=== PATIENT | female | born 1985 | race Asian ===

== ENCOUNTER 2020-06-13 16:22 | Emergency (ER) | payer SELFPAY ==
[~2020-06-13] VITALS: Ht 152.4 cm; Wt 56.7 kg
[2020-06-13 16:36] VITALS: BP 138/95
--- NOTE | 2020-06-13 16:36 | NUR ---
ED Nurse Note: Pt walked in to ED c/o pain and swelling to left jaw since 06/06/20. Pt went to urgent care earlier and was told to go to the ER for possible infection. Pt stated it started from a small lump then it progressively has gotten bigger. Denies fever/ chills.
--- NOTE | 2020-06-13 16:55 | NUR ---
ED Nurse Note: IV line established. Blood sent to lab.
[2020-06-13] MEDS ORDERED: Ketorolac 30mg Inj IM ONE (17:00)
[2020-06-13] MEDS ORDERED: Omnipaque-300 100ml vial INJ PRN (17:00)
[2020-06-13] MEDS ORDERED: Ketorolac 30mg Inj IV ONE (17:00)
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
[2020-06-13] MEDS ORDERED: Omnipaque-300 100ml vial INJ ONE (17:45)
[2020-06-13 18:19] LABS: HEMATOCRIT 36.2 % (37.0-47.0); HEMOGLOBIN 13.4 G/DL (12.0-16.0); MEAN CORPUSCULAR VOLUME 85 FL (80-99); PLATELET COUNT 380 K/UL (150-450); RED BLOOD COUNT 4.25 M/UL (4.20-5.40)
[2020-06-13 18:24] LABS: ANION GAP 14 mmol/L (5-15); BLOOD UREA NITROGEN 21 mg/dL (7-18); CALCIUM 9.3 MG/DL (8.5-10.1); CARBON DIOXIDE 21 MMOL/L (21-32); CHLORIDE 99 MMOL/L (98-107); CREATININE 0.9 MG/DL (0.55-1.30); POTASSIUM 3.6 MMOL/L (3.5-5.1); SODIUM 133 MMOL/L (136-145)
[2020-06-13 18:29] LABS: ALANINE AMINOTRANSFERASE 13 U/L (12-78); ALBUMIN 3.4 G/DL (3.4-5.0); ALBUMIN/GLOBULIN RATIO 0.6 (1.0-2.7); ALKALINE PHOSPHATASE 73 U/L (46-116); ASPARTATE AMINO TRANSFERASE 13 U/L (15-37); BILIRUBIN,TOTAL 0.4 MG/DL (0.2-1.0)
[2020-06-13] MEDS ORDERED: Piperacillin/Tazobactam 3.375 GM in NS 110 ML IVPB ONE (18:30)
--- NOTE | 2020-06-13 18:41 | NUR ---
ED Nurse Note: Pt was taken to CT, accompanied by a tech.
--- NOTE | 2020-06-13 18:56 | NUR ---
ED Nurse Note: Pt returned from CT.
--- NOTE | 2020-06-13 19:04 | NUR ---
HAND-OFF: Report given to Elaine PATEL.
--- NOTE | 2020-06-13 19:08 | Diagnostic Imaging Report ---
EXAM: CT Neck With Intravenous Contrast CLINICAL HISTORY: MASS TECHNIQUE: Axial computed tomography images of the neck with intravenous contrast. CTDI is 126.9 mGy and DLP is 328.90 mGy-cm. One or more of the following dose reduction techniques were used: automated exposure control, adjustment of the mA and/or kV according to patient size, use of iterative reconstruction technique. COMPARISON: No relevant prior studies available. FINDINGS: Oropharynx: No significant tonsillar enlargement. No peritonsillar abscess. Hypopharynx: Unremarkable. Larynx: Normal epiglottis. Trachea: Unremarkable. Retropharyngeal space: Unremarkable. Submandibular/parotid glands: Enlarged heterogeneous left parotid gland with surrounding inflammation. Thyroid: No nodules. Bones/joints: No acute fracture. Soft tissues: Unremarkable. Vasculature: Unremarkable. Lymph nodes: Prominent left-sided lymph nodes. Sinuses: Unremarkable. No acute sinusitis. Mastoid air cells: Unremarkable. No mastoid effusion. IMPRESSION: Enlarged heterogeneous left parotid gland with surrounding inflammation. Correlate parotitis. No abscess. <MYCVCSECTION> Communications: 06/13/20 19:16 Call From [facility] Dr. Bar
[2020-06-13] MEDS ORDERED: Morphine Sulfate 2mg/ml Inj(IV/IM USE ONLY) IVP ONE (19:30)
[2020-06-13] MEDS ORDERED: AUGMENTIN600 MG/5 M ORAL ×2 (20:06→20:48)
[2020-06-13] MEDS ORDERED: NORCO 5-325 TA1 EAC1 ORAL ×2 (20:09→20:48)
[2020-06-13 20:15] VITALS: BP 138/95
--- NOTE | 2020-06-13 20:15 | NUR ---
ER DISCHARGE NOTE: Patient is cleared to be discharged per ERMD, pt is aox4, on room air, with stable vital signs. pt was given dc and prescription instructions, pt was able to verbalize understanding, pt id band and iv site removed without complications. pt is able to ambulate with steady gait. pt took all belongings.
== END 2020-06-13 20:15 | disposition home or self-care (01) ==
LOC: EMR 16:40
DX: K11.20 Sialoadenitis, unspecified (principal)
CPT/HCPCS: 36415; 70491; 80053; 85007; 85025; 85610; 85730; 86850; 86900; 86901; 96361; 96365; 96375; 99284; J1885; J2270; J2543; J7030; Q9967